=== PATIENT | female | born 1975 | race Caucasian/White ===

== ENCOUNTER 2024-01-01 08:52 | Inpatient (IN) | payer OTHER ==
[~2024-01-01] VITALS: Ht 170.2 cm; Wt 136.1 kg
[2024-01-01 09:07] VITALS: BP 151/95; PULSE 62; RESP 18; TEMP 98; O2SAT 97
[2024-01-01 09:36] LABS: BASOPHILS % (AUTO) 0.5 % (0.0-2.0); EOSINOPHILS % (AUTO) 0.4 % (0.0-4.0); HEMATOCRIT 39.4 % (36-48); HEMOGLOBIN 12.8 g/dL (12.0-16.0); LYMPHOCYTES # (AUTO) 2.1 K/uL (2.5-16.5); LYMPHOCYTES % (AUTO) 26.7 % (20.5-51.1); MEAN CORPUSCULAR HEMOGLOBIN 28 pg (27-31); MEAN CORPUSCULAR HGB CONC 33 g/dL (33-37); MEAN CORPUSCULAR VOLUME 86.1 fL (80-94); MONOCYTES # (AUTO) 0.4 K/uL (0.8-1.0); MONOCYTES % (AUTO) 5.8 % (1.7-9.3); NEUTROPHILS # (AUTO) 5.2 K/uL (1.8-7.7); NEUTROPHILS % (AUTO) 66.6 % (42.2-75.2); PLATELET COUNT (AUTO) 179 K/uL (140-450); RED BLOOD CELL COUNT(AUTO) 4.58 MIL/uL (4.20-5.40); RED CELL DISTRIBUTION WIDTH 16.6 % (11.6-13.7); WHITE BLOOD COUNT (AUTO) 7.8 K/uL (4.8-10.8)
[2024-01-01 09:56] LABS: ALANINE AMINOTRANSFERASE 17 U/L (12-78); ALBUMIN 3.7 g/dL (3.4-5.0); ALKALINE PHOSPHATASE 88 U/L (50-136); ANION GAP 12.2 (8-16); ASPARTATE AMINOTRANSFERASE 16 U/L (15-37); CALCIUM 8.9 mg/dL (8.5-10.1); CHLORIDE 97 mmol/L (98-107); CREATININE 0.9 mg/dL (0.6-1.3); GFR ARICAN-AMERICAN 85 mL/min (>90); GFR NON ARICAN-AMERICAN 70 mL/min (>90); GLUCOSE 104 mg/dL (74-106); POTASSIUM 3.2 mmol/L (3.5-5.1); SODIUM SERUM 139 mmol/L (136-145); TOTAL BILIRUBIN 1.5 mg/dL (0.0-1.0); TOTAL PROTEIN, SERUM 8.1 g/dL (6.4-8.2); UREA NITROGEN, BLOOD 9 mg/dL (7-18)
[2024-01-01] MEDS ORDERED: INSULIN LISPRO SLIDING SCALE 100 UNITS/ML VIAL SUBQ PRN (10:00)
[2024-01-01] MEDS ORDERED: ACETAMINOPHEN 325 MG TAB PO PRN (10:00)
[2024-01-01] MEDS ORDERED: MORPHINE SULFATE 2 MG/ML SYR IVP PRN (10:00)
[2024-01-01] MEDS ORDERED: DEXTROSE 50% 50 ML SYR IVP PRN (10:00)
[2024-01-01] MEDS ORDERED: LORazepam 2 MG/ML VIAL IVP PRN (10:00)
[2024-01-01] MEDS ORDERED: HYDROcodone/APAP 5/325 MG 1 TAB TAB PO PRN (10:00)
[2024-01-01] MEDS ORDERED: ONDANSETRON 4 MG/2 ML VIAL IVP PRN ×2 (10:00→18:55)
[2024-01-01] MEDS ORDERED: VANCOMYCIN PER PHARMACY MC PRN (10:05)
[2024-01-01] MEDS ORDERED: METO25TE47 PO (10:07)
[2024-01-01] MEDS ORDERED: LOSA-272 PO (10:07)
[2024-01-01] MEDS ORDERED: OMEP-283 PO (10:07)
[2024-01-01] MEDS ORDERED: cefTRIAXone 1,000 MG VIAL ONE (10:12)
[2024-01-01] MEDS: NACL 0.9% 1,000 ML IV SCH ×2 (10:35→21:33)
[2024-01-01 11:00] VITALS: BP 145/69; PULSE 58; RESP 18; TEMP 98; O2SAT 98
[2024-01-01] MEDS: BLOOD GLUCOSE MONITORING 1 DEV DEV FS SCH (11:30)
[2024-01-01] MEDS: VANCOMYCIN 1,000 MG in DEXTROSE 5% 250 ML IV SCH (11:43)
[2024-01-01 12:00] VITALS: PULSE 60; RESP 18; O2SAT 97
[2024-01-01 16:00] VITALS: BP 159/99; PULSE 59; RESP 18; TEMP 96.8; O2SAT 98
[2024-01-01] MEDS ORDERED: PROPOFOL 200 MG/20 ML VIAL IV ONE ×4 (17:38→18:31)
[2024-01-01] MEDS ORDERED: LIDOCAINE/EPI 1% 1:100000 20 ML VIAL INJ ONE (17:43)
[2024-01-01] MEDS ORDERED: BUPIVACAINE-MPF 0.25% 30 ML VIAL INJ ONE (17:43)
[2024-01-01] MEDS ORDERED: fentaNYL citrate 0.05 MG/ML VIAL ONE ×2 (17:53→18:29)
[2024-01-01] MEDS ORDERED: MIDAZOLAM 2 MG/2 ML VIAL ONE (17:53)
[2024-01-01] MEDS ORDERED: ONDANSETRON 4 MG/2 ML VIAL ONE (18:12)
[2024-01-01] MEDS ORDERED: BLOOD GLUCOSE MONITORING 1 DEV DEV FS ONE (18:55)
[2024-01-01] MEDS ORDERED: diphenhydrAMINE 50 MG/ML VIAL IVP PRN (18:55)
[2024-01-01] MEDS: HYDROmorphone 1 MG/ML AMP IVP PRN (19:00)
[2024-01-01] MEDS ORDERED: HYDROmorphone PFS 2 MG/ML SYR ONE (19:04)
[2024-01-01 20:00] VITALS: BP 128/59; PULSE 73; RESP 18; TEMP 97.2; O2SAT 96
[2024-01-01] MEDS: PIPERACILLIN/TAZOBACTAM 3.375 GM in DEXTROSE 5% 50 ML IV SCH (21:18)
[2024-01-01] MEDS: METOPROLOL 25 MG TAB PO SCH (21:19)
[2024-01-02] MEDS ORDERED: LOSARTAN 50 MG TAB PO SCH (09:00)
[2024-01-02] MEDS ORDERED: ENOXAPARIN 40 MG/0.4 ML SYR SUBQ SCH (09:00)
== END 2024-01-01 23:59 | disposition home or self-care (01) | DRG 364 ==
LOC: MED 08:52 → MTU 10:03
PROVIDERS: ADMIT Hospitalist; ATTEND Hospitalist
PROC: 05HN33Z Insertion of Infusion Device into Left Internal Jugular Vein, Percutaneous Approach (ICD-10-PCS; 2024-01-01)
PROC: B544ZZA Ultrasonography of Left Jugular Veins, Guidance (ICD-10-PCS; 2024-01-01)
PROC: 0J9C0ZZ Drainage of Pelvic Region Subcutaneous Tissue and Fascia, Open Approach (ICD-10-PCS; principal; 2024-01-01 17:30)
DX: L02.211 Cutaneous abscess of abdominal wall (principal); N17.9 Acute kidney failure, unspecified; E87.6 Hypokalemia; I10 Essential (primary) hypertension; K21.9 Gastro-esophageal reflux disease without esophagitis; E11.9 Type 2 diabetes mellitus without complications; Z88.5 Allergy status to narcotic agent; Z88.8 Allergy status to other drugs, medicaments and biological substances; Z79.899 Other long term (current) drug therapy
CPT/HCPCS: 36415; 71045; 80053; 82948; 84484; 84702; 85025; 87040; 87081; 93005; 96365; 96375; 99285; J0696; J1171; J1815; J2001; J2250; J2405; J2543; J2704; J3010; J3370; J3490; J7060